=== PATIENT | female | born 1970 | race Caucasian/White ===

== ENCOUNTER 2022-01-29 10:37 | Emergency (ER) | payer SELFPAY ==
[2022-01-29 10:55] VITALS: BP 102/70; PULSE 104; RESP 16; TEMP 36.7; O2SAT 94; BMI 30.9
--- NOTE | 2022-01-29 11:14 | W.ED.ABDPA2 ---
HPI - Abdominal Pain General: Chief Complaint: Nausea/Vomiting/Diarrhea Stated Complaint: Hard to take a deep breath, whole body hurts Time Seen by Provider: 01/29/22 11:00 Source: patient and family (spouse) Mode of arrival: ambulatory Limitations: no limitations History of Present Illness: This patient presents to the emergency department accompanied by her spouse. She is here from home. She is here because of generalized body aches, several days of nausea vomiting and left flank pain. She also has an associated complaint of pain with deep breaths but no sustained chest pain with being at rest. She states her symptoms began approximately 4 days ago with left flank pain that felt somewhat similar to previous pain that she has had with kidney stones greater than 10 years previously. She states she had repetitive nausea and vomiting with no diarrhea. She was seen at a clinic and given a muscle relaxant and analgesic as well as an antinausea medicine. She states that she has continued to use the analgesics and the muscle relaxants but she cannot recall the names. She states that had minimal cough. She states no one else is ill at home. She states last menstrual period was 3 months ago and she does not think she is . She had a prior appendectomy but no other abdominal surgeries. She is not a tobacco user. No known recent exposure to COVID-19. She states she has had some blood in her urine and decreased urinary output. Has felt warm but no documented fevers. No history of lifting or back injury. No loss of bowel or bladder control etc. MD elicited complaint: flank pain Pertinent past history: kidney stones and past UTI Pain Consistency: intermittent and colicky Location: L flank and Suprapubic Severity: moderate Radiation: L flank Migration to: suprapubic Exacerbating factors: nothing Associated Symptoms: Reports hematuria, nausea, poor appetite and vomiting; Denies chills, diarrhea, fever(s), hematemesis, loose stools and syncope Review of Systems Const: Reports: body aches, change in appetite and malaise; Denies: fever(s) or chills Eyes: Denies: change in vision ENMT: Denies: throat pain, odynophagia, ear or mastoid pain, ear discharge or nasal congestion Card: Reports: chest pain; Denies: palpitations, irregular heart rhythm, edema or syncope Resp: Reports: non-productive cough; Denies: dyspnea, productive cough, wheezing or stridor GI: Reports: nausea and vomiting; Denies: hematemesis or diarrhea : Reports: flank pain and hematuria Musc: Denies: neck pain, extremity pain or extremity swelling Skin/Breast: Denies: rash, pruritus or erythema Neuro: Denies: headache(s), numbness in extremities or weakness in extremities Psych: Denies: anxiety or depression Endo: Reports: polydipsia Je/Lymph: Denies: easy bruising or easy bleeding All/Imm: Denies: urticaria PFSH ED PFSH: Social History Smoking and tobacco status: never smoked Physical Exam Narrative: EXAM NARRATIVE: She appears ill. She is able to answer questions in a goal-directed fashion. She makes good eye contact. Const: COMMON NORMALS: average body habitus and patient oriented x3 GENERAL APPEARANCE: ill appearing ORIENTATION/CONSCIOUSNESS: Yes awake HENMT: COMMON NORMALS: normocephalic, atraumatic, external ears normal, Normal external nose present and oropharynx normal HEAD & SCALP: normocephalic and atraumatic NOSE: Normal external nose present EXTERNAL EAR: Yes external ears normal MOUTH: moist mucous membranes abnormal Details: parched Eye: COMMON NORMALS: Equal, round and reactive pupils present, EOMs intact bilaterally, conjunctivae normal and no scleral icterus CONJUNCTIVA: Yes conjunctivae normal PUPIL: Yes Equal, round and reactive pupils present Neck/C-Spine: COMMON NORMALS: full ROM, supple, no JVD and Thyroid normal THYROID: Thyroid normal Chest: COMMONS NORMALS: normal inspection of the chest CHEST: Yes localized rib tenderness with anteroposterior compression (Tenderness of the anterior chest wall particularly in the upper anterior ), No Ecchymosis present and No rash Resp: COMMON NORMALS: normal respiratory effort and clear to auscultation bilaterally AUSCULTATION: clear to auscultation bilaterally Cardio: COMMON NORMALS: no JVD, regular rate and No murmurs present (Cardio) RATE: regular rate GI: COMMON NORMALS: Normal to inspection, nondistended, normoactive bowel sounds present and no masses PALPATION: No Rebound tenderness present and Yes Other GI palpation findings present (Tender generalized with some voluntary guarding but no rebound.) : BLADDER/KIDNEY EXAM: Yes CVA tenderness Back/Pelvis: COMMON NORMALS: thoracic and lumbar spine normal to inspection and straight leg raise negative bilaterally GENERAL BACK: Yes CVA tenderness CVA tenderness: left and No erythema SACROILIAC JOINTS: Yes SI joints normal Extremity: COMMON NORMALS: normal to inspection, full ROM, capillary refill normal, no calf tenderness and no pedal edema Neuro: COMMON NORMALS: patient oriented x3, moves all extremities, no focal motor deficits and no sensory deficits noted CRANIAL NERVES: Yes CN normal except as noted Psych: COMMON NORMALS: mental status grossly normal Skin: COMMON NORMALS: no rashes or lesions noted, no wounds, turgor normal and no jaundice GENERAL SKIN EXAM: no rashes or lesions noted and turgor normal Course Reevaluation(s): Reevaluation #1: Patient declined her CT scan. Initial review of labs thus far reveal that she is has evidence of acute kidney injury with prerenal azotemia. She also has leukopenia as well as a thrombocytopenia. Covid and influenza studies ordered. We will have discussion regarding possible reconsideration of CAT scan. It appears at this point that she will require minimum of observation for continued hydration. Time: 12:55 Reevaluation #2: I discussed current findings with patient and spouse including acute kidney injury of uncertain etiology whether is primarily just due to volume depletion or there is a downstream obstruction from occult stone. I also informed him that this is something that is not good to be correctable in a brief emergency department visit and then continued treatment in the hospital is going to be important. They voiced understanding of our discussion. They agreed to the CAT scan. Time: 13:01 Reevaluation #3: Discussed the need for hospitalization in detail. They have agreed to the same. We are running into some difficulty because of lack of bed and/or urology coverage at the local referral centers. We have attempted [facility] in [facility] in [facility], [facility] in [place] as well as [place]. Her COVID-19 test is still pending as well as her lactate. We have loaded her with 2 g of Rocephin empirically. Time: 14:35 Additional Reevaluation(s): Still awaiting excepting the location for transfer. Patient's continue to improve and she has spontaneous voiding now. We will continue IV hydration. Consultations: Consultation #1: I discussed with on-call hospitalist. Concern is that urology apparently is not available at this point in time and given her obstructive uropathy on CT with her acute kidney injury it would be prudent to transfer her to a facility that has urology support. Time: 13:52 Consultation #2: We discussed with urologist at [facility] who agreed that the patient needed additional care. We are also discussed with Dr. Vang the accepting hospitalist at [facility] and she accepted the patient in transfer. Time: 16:38 Vital Signs: Vital signs: Vital Signs Temperature 98.0 F 01/29/22 10:55 Pulse Rate 103 H 01/29/22 16:24 Respiratory Rate 28 H 01/29/22 16:24 Blood Pressure 103/64 01/29/22 16:24 Pulse Oximetry 98 01/29/22 16:24 MDM - Abdominal Pain Medical Decision Making This patient who presented with a history of left flank pain was found to have significant acute kidney injury with associated obstructive uropathy and infection. She was fluid resuscitated in the emergency department with improvement in her vital signs as well as beginning spontaneous urine output. She also received broad-spectrum antibiotic coverage and appropriate cultures. He was clinically improved but required admission to the facility with urology support. We do not have urology support at this facility and so it took some time to locate an accepting facility that had bed availability and also had urology coverage. We eventually were able to find an accepting facility at [facility]. She is being transferred to that facility in an improved and stable condition. The need for inpatient care and urology evaluation was shared in detail with the patient and her accompanying family. Lab Data : 01/29/22 11:23 01/29/22 11:23 Labs/Radiology: Radiology Impressions Abdomen/Pelvis CT 01/29/22 11:25 IMPRESSION: 1. There are calculi in the proximal and distal left ureter with obstructive changes as described above. 2. Small left pleural effusion with adjacent compressive atelectasis or pneumonia. Chest X-Ray 01/29/22 11:25 IMPRESSION: Hazy opacities at the left lung base are nonspecific. Consider CT scan of the thorax for further evaluation as clinically warranted. Laboratory Results WBC 1.8 10^3/uL (4.0-10.0) L 01/29/22 11:23 RBC 3.99 10^6/uL (4.1-5.3) L 01/29/22 11:23 Hgb 12.4 g/dL (11.5-15.3) 01/29/22 11:23 Hct 37.9 % (37.0-47.0) 01/29/22 11:23 MCV 95.0 fl (81-99) 01/29/22 11:23 MCH 31.1 pg (28.0-34.0) 01/29/22 11: MCHC 32.7 g/dL (30.0-36.0) 01/29/22 11:23 RDW 13.3 % (12.1-15.1) 01/29/22 11:23 Plt Count 65 10^3/cmm (130-400) L 01/29/22 11: MPV 12.3 fL (7.4-10.4) H 01/29/22 11:23 Neut % (Auto) 83.1 % 01/29/22 11:23 Lymph % (Auto) 13.1 % 01/29/22 11:23 [place] % (Auto) 0.5 % 01/29/22 11:23 Eos % (Auto) 1.1 % 01/29/22 11:23 Baso % (Auto) 1.1 % 01/29/22 11:23 Neut # (Auto) 1.52 10^3/uL (1.8-7.7) L 01/29/22 11:23 Lymph # (Auto) 0.2 10^3/uL (0.8-4.8) L 01/29/22 11:23 [place] # (Auto) 0.0 10^3/uL (0.2-0.9) L 01/29/22 11:23 Eos # (Auto) 0.0 10^3/uL (0.0-0.8) 01/29/22 11:23 Baso # (Auto) 0.0 10^3/uL (0.0-0.1) 01/29/22 11: Nucleated RBC % (auto) 0 % 01/29/22 11: Nucleated RBCs # 0.0 /100WBC 01/29/22 11:23 Sodium 131 mmol/L (136-145) L 01/29/22 11:23 Potassium 3.6 mmol/L (3.5-5.1) 01/29/22 11:23 Chloride 98 mmol/L (98-107) 01/29/22 11:23 Carbon Dioxide 17 mmol/L (22-29) L 01/29/22 11:23 Anion Gap 19.6 (5-19) H 01/29/22 11:23 BUN 64 mg/dL (6-20) H 01/29/22 11:23 Creatinine 4.6 mg/dL (0.5-0.9) H 01/29/22 11:23 GFR Calculation 10.1 mL/min (90-130) L 01/29/22 11:23 Glucose 69 mg/dL (65-115) 01/29/22 11:23 Calculated Osmolality 289 mOsm/kg (285-295) 01/29/22 11:23 Lactate 2.6 mmol/L (0.5-2.2) H 01/29/22 14:37 Calcium 9.3 mg/dL (8.5-10.5) 01/29/22 11:23 Total Bilirubin 0.9 mg/dL (0.15-1.2) 01/29/22 11:23 AST 21 U/L (0-32) 01/29/22 11:23 ALT 17 U/L (0-33) 01/29/22 11:23 Alkaline Phosphatase 304 IU/L (35-105) H 01/29/22 11:23 Total Protein 6.8 g/dL (6.6-8.7) 01/29/22 11:23 Albumin 3.0 g/dL (3.5-5.2) L 01/29/22 11:23 Globulin 3.8 g/dL (1.3-4.6) 01/29/22 11:23 Lipase 15 U/L (13-60) 01/29/22 11:23 HCG, Qual Negative (Negative) 01/29/22 14:04 Urine Color Yellow (Yellow) 01/29/22 Unknown Urine Appearance Cloudy (CLEAR) 01/29/22 Unknown Urine pH 5 (5-7) 01/29/22 Unknown Ur Specific [place] 1.015 (1.005-1.030) 01/29/22 Unknown Urine Protein 1+ (Negative) H 01/29/22 Unknown Urine Glucose (UA) Norm (Normal) 01/29/22 Unknown Urine Ketones Negative (Negative) 01/29/22 Unknown Urine Blood 3+ (Negative) H 01/29/22 Unknown Urine Nitrate Negative (Negative) 01/29/22 Unknown Urine Bilirubin 1+ (Negative) H 01/29/22 Unknown Urine Urobilinogen 1 mg/dL (Negative) H 01/29/22 Unknown Ur Leukocyte Esterase 2+ (Negative) H 01/29/22 Unknown Urine RBC 5-10 /hpf (0-2) H 01/29/22 Unknown Urine WBC 15-25 /hpf (0-5) H 01/29/22 Unknown Ur Squamous Epith Cells 15-25 /hpf (0-5) H 01/29/22 Unknown Amorphous Sediment 1+ /hpf 01/29/22 Unknown Urine Bacteria 2+ /hpf (NONE) H 01/29/22 Unknown Coronavirus 229E (PCR) Not detected (NOT DETECT) 01/29/22 12:35 Influenza Type A Ag Negative (Negative) 01/29/22 12:35 Influenza Type B Ag Negative (Negative) 01/29/22 12:35 SARS-CoV-2 (PCR) Not detected (NOT DETECT) 01/29/22 12:35 SARS-CoV-2 Ag (Rapid) Cancelled 01/29/22 12:35 EKG Data EKG 1: EKG interpretation time: 11:25 Interpretation: EKG reveals a sinus tachycardia 107 bpm. Normal TN and QRS interval and duration. QTc intervals normal. Normal axis. No acute ST-T wave changes noted. Discharge Plan Discharge Patient Disposition: Xfer Short-Term Hosp Clinical Impression: Acute nontraumatic kidney injury, Thrombocytopenia, Leukopenia, Hydronephrosis with ureteral calculus, UTI (urinary tract infection) Condition: Stable Referrals: Tk Todd, [employer] [Primary Care Provider] - Coding Level of Care Code ED Toll Collector for Chg Fwd Exam Comprehensive
--- NOTE | 2022-01-29 11:25 | CTR_ITS ---
PROCEDURE INFORMATION: Exam: CT Abdomen And Pelvis Without Contrast Exam date and time: 01/29/2022 1:13 PM Age: 51 years old Clinical indication: Abdominal pain; Flank; Left; Patient HX: HX of renal calculus TECHNIQUE: Imaging protocol: Computed tomography of the abdomen and pelvis without contrast. Radiation optimization: All CT scans at this facility use at least one of these dose optimization techniques: automated exposure control; mA and/or kV adjustment per patient size (includes targeted exams where dose is matched to clinical indication); or iterative reconstruction. COMPARISON: US gall bladder [id number] 02/16/2015 4:41 PM RADIATION DOSE METRICS: Total DLP (mGy-cm): 1180.39 FINDINGS: Pleural spaces: Small left pleural effusion with adjacent compressive atelectasis or pneumonia. Liver: Normal. No mass. Gallbladder and bile ducts: Normal. No calcified stones. No ductal dilation. Pancreas: Normal. No ductal dilation. Spleen: Normal. No splenomegaly. Adrenal glands: Normal. No mass. Kidneys and ureters: There is 5 mm x 7 mm calculus in the proximal left ureter. A 2 mm calculus is present in the distal left ureter. Moderate left hydronephrosis. Mild to moderate perinephric/ periureteral inflammatory stranding. Stomach and bowel: Unremarkable. No obstruction. No mucosal thickening. Appendix: No evidence of appendicitis. Intraperitoneal space: Unremarkable. No free air. No significant fluid collection. Vasculature: Unremarkable. No abdominal aortic aneurysm. Lymph nodes: Unremarkable. No enlarged lymph nodes. Urinary bladder: Unremarkable as visualized. Reproductive: Unremarkable as visualized. Bones/joints: Unremarkable. No acute fracture. Soft tissues: Small fat containing umbilical hernia. CT/CT abdomen pelvis con [id number] IMPRESSION: 1. There are calculi in the proximal and distal left ureter with obstructive changes as described above. 2. Small left pleural effusion with adjacent compressive atelectasis or pneumonia.
--- NOTE | 2022-01-29 11:25 | XRR_ITS ---
PROCEDURE INFORMATION: Exam: XR Chest Exam date and time: 01/29/2022 11:28 AM Age: 51 years old Clinical indication: Pain; Chest pressure; Additional info: Chest pain TECHNIQUE: Imaging protocol: XR of the chest. Views: 1 view. COMPARISON: No relevant prior studies available. FINDINGS: Lungs: There are hazy opacities at the left lung base. Pleural spaces: Unremarkable. No pleural effusion. No pneumothorax. Heart/Mediastinum: Unremarkable. No cardiomegaly. Bones/joints: Unremarkable. XR/XR chest 1V portable [id number] IMPRESSION: Hazy opacities at the left lung base are nonspecific. Consider CT scan of the thorax for further evaluation as clinically warranted.
[2022-01-29 11:36] LABS: Basophils % 1.1 %; Eosinophils % 1.1 %; Hematocrit 37.9 % (37.0-47.0); Hemoglobin 12.4 g/dL (11.5-15.3); Lymphocytes # 0.2 10^3/uL (0.8-4.8); Lymphocytes % 13.1 %; Mean Corpuscular HGB Conc 32.7 g/dL (30.0-36.0); Mean Corpuscular Hemoglobin 31.1 pg (28.0-34.0); Mean Platelet Volume 12.3 fL (7.4-10.4); Monocytes % 0.5 %; Neutrophils # 1.52 10^3/uL (1.8-7.7); Neutrophils % 83.1 %; Nucleated Red Blood Cells % 0 %; Platelet Count 65 10^3/cmm (130-400); Red Blood Count 3.99 10^6/uL (4.1-5.3); Red Cell Distribution Width 13.3 % (12.1-15.1); White Blood Count 1.8 10^3/uL (4.0-10.0)
[2022-01-29] MEDS: ketorolac 30 mg/mL INJ 10 MG IVP (11:36)
[2022-01-29] MEDS: sodium chloride 0.9% 1,000 ML 999 ML IV (11:36)
--- NOTE | 2022-01-29 11:42 | ECG_ITS ---
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 Measurements Intervals [place] Rate: 107 P: 56 UT: 132 QRS: 30 QRSD: 89 T: 31 QT: 302 QTc: 403 Interpretive Statements SINUS TACHYCARDIA POSSIBLE ANTERIOR MYOCARDIAL INFARCTION , PROBABLY OLD [30 ms Q WAVE IN V3/V4, OR R < 0.2 mV IN V4] ABNORMAL RHYTHM ECG No previous ECG available for comparison Electronically Signed On 01-30-2022 17:23:59 CDT by Poornima Adames M.D. [id number] f
[2022-01-29 11:54] LABS: Alanine Aminotransferase 17 U/L (0-33); Alkaline Phosphatase 304 IU/L (35-105); Aspartate Amino Transferase 21 U/L (0-32); Blood Urea Nitrogen 64 mg/dL (6-20); Calcium 9.3 mg/dL (8.5-10.5); Carbon Dioxide 17 mmol/L (22-29); Chloride 98 mmol/L (98-107); Creatinine Clr Calc Pharmacy 14.7581; Globulin 3.8 g/dL (1.3-4.6); Glomerular Filtration Rate 10.1 mL/min (90-130); Glucose 69 mg/dL (65-115); Lipase 15 U/L (13-60); Osmolality Calculated 289 mOsm/kg (285-295); Sodium 131 mmol/L (136-145); Total Bilirubin 0.9 mg/dL (0.15-1.2); Total Protein 6.8 g/dL (6.6-8.7)
[2022-01-29 12:13] LABS: Slide Review Slide Review Perform
[2022-01-29 12:40] LABS: Anion Gap 19.6 (5-19); Potassium 3.6 mmol/L (3.5-5.1)
[2022-01-29 13:24] VITALS: BP 102/61; PULSE 104; RESP 28; O2SAT 96
[2022-01-29] MEDS: lactated ringers 1,000 ML 999 ML IV (13:27)
[2022-01-29 13:28] LABS: Influenza A by IFA Negative (Negative)
[2022-01-29 13:29] LABS: Influenza B by IFA Negative (Negative)
[2022-01-29] MEDS: cefTRIAXone 2,000 MG in sodium chloride 0.9% (plus) 50 ML 100 MG IV (14:11)
[2022-01-29 14:21] LABS: HCG Qualitative Urine. Negative (Negative)
[2022-01-29 14:34] LABS: Add Urine Microscopic? YES; Bilirubin Urine 1+ (Negative); Blood Urine 3+ (Negative); Glucose Urine UA Norm (Normal); Ketones Urine Negative (Negative); Leukocyte Esterase Urine 2+ (Negative); Nitrate Urine Negative (Negative); Protein Urine 1+ (Negative); Specific Gravity, Urine 1.015 (1.005-1.030); Urine Appearance Cloudy (CLEAR); Urine Color Yellow (Yellow); Urobilinogen Urine 1 mg/dL (Negative); WBC Urine 15-25 /hpf (0-5); pH Urine 5 (5-7)
[2022-01-29 14:35] LABS: Add Urine Culture? No; Amorphous Sediment Urine 1+ /hpf; Bacteria Urine 2+ /hpf; Squamous Epithelial Cell Urine 15-25 /hpf (0-5)
[2022-01-29 14:59] VITALS: BP 113/74; PULSE 105; RESP 22; O2SAT 97
[2022-01-29 15:07] LABS: Adenovirus Not Detected (NOT DETECT); Chlamydia Pneumoniae Not Detected (NOT DETECT); Coronavirus 229E,HKU1,NL63,OC4 Not Detected (NOT DETECT); Human Metapneumovirus Not Detected (NOT DETECT); Human Rhinovirus/Enterovirus Not Detected (NOT DETECT); Influenza A Not Detected (NOT DETECT); Influenza A H1 Not Detected (NOT DETECT); Influenza A H1-2009 Not Detected (NOT DETECT); Influenza A H3 Not Detected (NOT DETECT); Influenza B Not Detected (NOT DETECT); Mycoplasma Pneumoniae Not Detected (NOT DETECT); Parainfluenza Virus Type 1 Not Detected (NOT DETECT); Parainfluenza Virus Type 2 Not Detected (NOT DETECT); Parainfluenza Virus Type 3 Not Detected (NOT DETECT); Parainfluenza Virus Type 4 Not Detected (NOT DETECT); Respiratory Syncytial Virus A Not Detected (NOT DETECT); Respiratory Syncytial Virus B Not Detected (NOT DETECT); SARS-COV-2 Not Detected (NOT DETECT)
[2022-01-29 15:11] LABS: Lactate (Lactic Acid level) 2.6 mmol/L (0.5-2.2)
[2022-01-29 16:24] VITALS: BP 103/64; PULSE 103; RESP 28; O2SAT 98
[2022-01-29] MEDS: lactated ringers 1,000 ML 200 ML IV (16:27)
[2022-01-29 17:53] VITALS: BP 128/60; PULSE 97; RESP 22; TEMP 36.6; O2SAT 96
[2022-01-29] MEDS: morphine 4 mg/mL SDV 1 mL IVP (18:02)
[2022-01-29 18:42] VITALS: BP 108/69; PULSE 97; RESP 16; O2SAT 22
--- NOTE | 2022-01-30 06:26 | PC.NURSE ---
Received blood culture report (preliminary). Advised Dr. Chavira. Patient was transferred to [facility]. No further needed per Dr. Chavira
== END 2022-01-29 19:22 | disposition short-term general hospital (02) ==
PROVIDERS: Emergency Provider Emergency Medicine; PCP Nurse Practitioner
DX: N17.9 Acute kidney failure, unspecified (principal); D69.6 Thrombocytopenia, unspecified; D72.819 Decreased white blood cell count, unspecified; N13.2 Hydronephrosis with renal and ureteral calculous obstruction; N39.0 Urinary tract infection, site not specified; Z20.822 Contact with and (suspected) exposure to COVID-19
CPT/HCPCS: 71045; 74176; 80053; 81001; 81025; 83605; 83690; 85025; 87040; 87077; 87186; 87205; 87635; 87804; 93005; 96361; 96365; 96375; 99285; J0696; J1885; J2270; J7030

== ENCOUNTER 2023-08-23 12:37 | Outpatient (CLI) | payer SELFPAY ==
--- NOTE | 2023-08-23 13:00 | CT_ITS ---
WS: [id number] CT chest w con* [id number] HISTORY: facial, neck and chest swelling lymphadnopathy TECHNIQUE: Axial imaging performed through the thorax. Coronal and sagittal reformats are submitted. All CT scans at [facility] use at least one of these dose optimization techniques: automated exposure control; mA and/or kV adjustment per patient size (includes targeted exams where dose is mat ched to clinical indication); or iterative reconstruction. CONTRAST: Omnipaque 350; 100 mL IV. DLP: 320.86 mGy.cm COMPARISON: None available. Lungs and central airway: Mild pulmonary hyperexpansion. There is mild diffuse interstitial thickenin g and prominence throughout both lungs. No mass or consolidation. Pleura: Normal. No pleural effusion. Heart and pericardium: Normal size heart with no pericardial effusion. Mediastinum and roxana: Small mediastinal and hilar lymph nodes. No adenopathy. No supraclavicular raysa opathy. Vessels: Normal size aortic and pulmonary artery. No coronary artery calcifications. Chest wall and lower neck: No soft tissue masses. Upper abdomen: No adrenal mass. Cortical thinning and mild atrophy LEFT kidney. Osseous structures: Mild RIGHT thoracic curvature no destructive process. IMPRESSION: 1. No lymphadenopathy noted within the chest or lower neck. 2. Very mild interstitial thickening throughout both lungs. Suspect changes of early respiratory bron chiolitis. No pneumonia. 3. Mild atrophy and cortical thinning LEFT kidney.
[2023-08-23] MEDS: iohexol 350 mg/mL 500 mL Btl (per mL) IV (13:19)
== END 2023-08-23 12:38 | disposition home or self-care (01) ==
LOC: RAD 12:39
PROVIDERS: PCP Nurse Practitioner; Visit Provider Nurse Practitioner Family
DX: R59.1 Generalized enlarged lymph nodes (principal); R53.83 Other fatigue; R91.8 Other nonspecific abnormal finding of lung field
CPT/HCPCS: 71260; 80053; 82607; 82746; 84439; 84443; 84481; Q9967

== ENCOUNTER → 2024-08-07 10:28 | Outpatient (BNVA) | payer SELFPAY | PROVIDERS: PCP Nurse Practitioner; Visit Provider Nurse Practitioner Family | DX: R30.0 Dysuria | CPT/HCPCS: 81000 ==